=== PATIENT | male | born 1940 | race Caucasian/White ===

== ENCOUNTER 2018-02-08 08:50 | Emergency (ER) | payer OTHER ==
[~2018-02-08] VITALS: Ht 167.6 cm; Wt 86.2 kg
[2018-02-08] MEDS ORDERED: CYCLOBENZAPRINE5 M2 PO (09:05)
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
[2018-02-08 09:12] VITALS: BP 148/70
== END 2018-02-08 09:14 ==
LOC: ERH 08:50
DX: S16.1XXA Strain of muscle, fascia and tendon at neck level, initial encounter (principal); X58.XXXA Exposure to other specified factors, initial encounter; Y92.9 Unspecified place or not applicable; Y93.89 Activity, other specified